=== PATIENT | female | born 1950 | race Caucasian/White ===

== ENCOUNTER → 2022-03-03 | Outpatient (CLI) | payer MEDICARE, OTHER, BC ==
[~2022-03-03] MED LIST: ECOT81TA5 PO; ESTR0.1C5; GASTROGRAFIN SOLUTION 30ML As Ordered ONE; HYDR-3490; ISOVUE-370 76% 100ML VIAL As Ordered ONE; KETO2SHA8; NOXI1TAB PO; QUIN40TA26; SIMV20TA22; SYNT50TA
== END ==
LOC: M RAD 09:08
PROVIDERS: ATTEND Specialist
DX: C85.10 Unspecified B-cell lymphoma, unspecified site (principal)
CPT/HCPCS: 70491; 71260; 74177; Q9963; Q9967

== ENCOUNTER → 2022-03-10 | Outpatient (CLI) | payer MEDICARE, BC, OTHER ==
[~2022-03-10] MED LIST changes: -GASTROGRAFIN SOLUTION 30ML As Ordered ONE; -ISOVUE-370 76% 100ML VIAL As Ordered ONE; +LIDOCAINE 1% MDV 20ML VIAL As Ordered ONE
[2022-03-10 12:09] LABS: BASO # 0.1 10^3/uL (0.0-0.2); BASO % 0.8 % (0.0-1.0); EOS # 0.3 10^3/uL (0.0-0.5); EOS % 3.3 % (0.0-3.0); HEMATOCRIT 41.2 % (36.0-47.0); HEMOGLOBIN 13.6 g/dl (12.0-15.5); LYMPH % 21.9 % (24.0-44.0); MEAN CORPUSCULAR HEMOGLOBIN 31.9 pg (27.0-33.0); MEAN CORPUSCULAR VOLUME 96.5 fl (80.0-96.0); MONO # 1.1 10^3/uL (0.0-0.8); MONO % 11.9 % (2.0-8.0); NEUTROPHILS # 5.6 10^3/uL (1.5-8.5); NEUTROPHILS % 61.8 % (36.0-66.0); PLATELET COUNT, AUTOMATED 201 10^3/uL (150-450); RED BLOOD COUNT 4.27 10^6/uL (4.00-5.40)
[2022-03-10 12:45] VITALS: BP 167/79
== END ==
LOC: M IRPRO 11:31
PROVIDERS: ATTEND Specialist
DX: C83.30 Diffuse large B-cell lymphoma, unspecified site (principal)

== ENCOUNTER → 2022-03-25 | Outpatient (CLI) | payer MEDICARE, BC, OTHER ==
[~2022-03-25] MED LIST changes: -ESTR0.1C5; +ESTR0.1C5 TOP; -HYDR-3490; +HYDR-3490 PO; -KETO2SHA8; +KETO2SHA8 TOP; -LIDOCAINE 1% MDV 20ML VIAL As Ordered ONE; +LISI40TA4 PO; -SIMV20TA22; +SIMV20TA22 PO; -SYNT50TA; +SYNT50TA PO
== END ==
LOC: M ONCR 09:16
PROVIDERS: ATTEND General Practice
DX: C82.61 Cutaneous follicle center lymphoma, lymph nodes of head, face, and neck (principal); I10 Essential (primary) hypertension; E03.9 Hypothyroidism, unspecified; Z79.890 Hormone replacement therapy; Z79.899 Other long term (current) drug therapy; Z90.710 Acquired absence of both cervix and uterus; Z85.3 Personal history of malignant neoplasm of breast

== ENCOUNTER → 2022-04-06 | Outpatient (CLI) | payer MEDICARE, BC, OTHER | LOC: M PLARAD 13:19 | PROVIDERS: ATTEND Internal Medicine Hematology & Oncology | DX: C85.91 Non-Hodgkin lymphoma, unspecified, lymph nodes of head, face, and neck (principal); N20.0 Calculus of kidney | CPT/HCPCS: 78815; A9552 ==

== ENCOUNTER → 2022-04-26 | Outpatient (RCR) | payer MEDICARE, BC, OTHER | LOC: M ONCR 04-01 13:45 | PROVIDERS: ATTEND General Practice | DX: C82.69 Cutaneous follicle center lymphoma, extranodal and solid organ sites (principal) ==

== ENCOUNTER 2022-05-02 07:49 | Outpatient (RCR) | payer MEDICARE, BC, OTHER | END 2022-05-24 | LOC: M ONCR 07:49 | PROVIDERS: ATTEND General Practice | DX: C82.69 Cutaneous follicle center lymphoma, extranodal and solid organ sites (principal) ==

== ENCOUNTER → 2022-05-31 | Outpatient (CLI) | payer MEDICARE, BC, OTHER | LOC: M ONCR 08:47 | PROVIDERS: ATTEND General Practice | DX: C82.49 Follicular lymphoma grade IIIb, extranodal and solid organ sites (principal); Z92.3 Personal history of irradiation ==

== ENCOUNTER → 2022-11-01 | Outpatient (CLI) | payer MEDICARE, BC, OTHER | LOC: M ONCR 08:30 | PROVIDERS: ATTEND General Practice | DX: C82.69 Cutaneous follicle center lymphoma, extranodal and solid organ sites (principal); Z79.82 Long term (current) use of aspirin; Z79.899 Other long term (current) drug therapy; Z88.1 Allergy status to other antibiotic agents; Z88.2 Allergy status to sulfonamides ==

== ENCOUNTER 2024-04-08 10:40 | Day surgery (SDC) | payer MEDICARE, BC ==
[~2024-04-08] VITALS: Ht 169.5 cm; Wt 71.9 kg
[~2024-04-08 10:40] MED LIST changes: +METF-838 PO
[2024-04-08] MEDS ORDERED: LR 1,000 ML IV SCH ×2 (11:05→14:30)
[2024-04-08 11:08] LABS: HEMATOCRIT 41.8 % (36.0-47.0); HEMOGLOBIN 13.8 g/dl (12.0-15.5); MEAN CORPUSCULAR HEMOGLOBIN 31.4 pg (27.0-33.0); MEAN CORPUSCULAR VOLUME 95.2 fl (80.0-96.0); PLATELET COUNT, AUTOMATED 222 10^3/uL (150-450); RED BLOOD COUNT 4.39 10^6/uL (4.00-5.40); WHITE BLOOD COUNT 10.5 10^3/uL (4.0-10.0)
[2024-04-08] MEDS ORDERED: LIDOCAINE 2% 100MG/5ML SDV (FOR ANES.) As Ordered ONE (12:43)
[2024-04-08] MEDS ORDERED: MIDAZOLAM INJ 2MG/2ML VIAL As Ordered ONE (12:43)
[2024-04-08] MEDS ORDERED: fentaNYL 100 MCG/2 ML INJECTION As Ordered ONE (12:43)
[2024-04-08] MEDS ORDERED: propofoL 200 MG/20 ML VIAL As Ordered ONE (12:43)
[2024-04-08] MEDS: VASOPRESSIN INJ 20UNITS/ML 1ML VIAL As Ordered ONE (12:44)
[2024-04-08] MEDS: ceFAZolin SOD 2 GM in IV 1 EA IV ONE (13:09)
[2024-04-08] MEDS ORDERED: ONDANSETRON 4MG 2ML VIAL As Ordered ONE (13:19)
[2024-04-08] MEDS ORDERED: ACETAMINOPHEN 1000MG/100ML IV BAG As Ordered ONE (13:26)
[2024-04-08] MEDS ORDERED: ePHEDrine SULFATE 25 MG/5 ML(5MG/ML) SYRINGE As Ordered ONE (13:40)
[2024-04-08] MEDS ORDERED: KETOROLAC 60MG 2ML VIAL As Ordered ONE (13:47)
[2024-04-08] MEDS ORDERED: ONDANSETRON 4MG 2ML VIAL IV PRN (14:30)
[2024-04-08] MEDS ORDERED: PERCOCET 5MG/325MG TAB PO PRN (14:30)
[2024-04-08] MEDS ORDERED: oxyCODONE 5MG TAB PO PRN (14:30)
[2024-04-08] MEDS ORDERED: fentaNYL 100 MCG/2 ML INJECTION IV PRN (14:30)
[2024-04-08] MEDS ORDERED: IBUP-1022 PO (14:49)
[2024-04-08] MEDS ORDERED: COLA100C5 PO (14:49)
[2024-04-08 15:10] VITALS: BP 157/67; TEMP 97.2; O2SAT 98
== END 2024-04-08 15:35 | disposition home or self-care (01) ==
LOC: M SDC 10:40
PROVIDERS: ATTEND Specialist
DX: N81.10 Cystocele, unspecified (principal); N81.6 Rectocele; Z90.710 Acquired absence of both cervix and uterus; I10 Essential (primary) hypertension; E03.9 Hypothyroidism, unspecified; R32 Unspecified urinary incontinence; Z79.899 Other long term (current) drug therapy; Z79.890 Hormone replacement therapy; Z79.82 Long term (current) use of aspirin; Z85.72 Personal history of non-Hodgkin lymphomas; Z92.3 Personal history of irradiation; Z88.2 Allergy status to sulfonamides
CPT/HCPCS: 36415; 57260; 85027; 86850; 86900; 86901; 88302; J0131; J0665; J0690; J1100; J1885; J2250; J2405; J3010